=== PATIENT | male | born 1985 | race Two or more races ===

== ENCOUNTER 2022-01-30 14:03 | Emergency (ER) | payer MEDICAID ==
[~2022-01-30] VITALS: Ht 167.6 cm; Wt 82.6 kg
--- NOTE | 2022-01-30 14:14 | NUR ---
BIB FAMILY FOR RLE PAIN S/P LARGE CABINET FEL ON TOP OF HIS R LEG. TO ER BED 11, HOOKED TO MONITOR, CHANGED TO HOSP GOWN, WARM BLANKET PROVIDED. AWAITING MD JOSHI.
--- NOTE | 2022-01-30 14:32 | NUR ---
DR ARREOLA AT BEDSIDE
--- NOTE | 2022-01-30 14:44 | NUR ---
JENNIFER WRAP REMOVED,RADIOLOGY CALLED FOR X-RAY
[2022-01-30] MEDS ORDERED: HYDROCODONE/APAP 5/325MG TABLET PO ONE (15:00)
[2022-01-30] MEDS ORDERED: KETOROLAC TROMETHAMINE INJ 30 MG/ML VIAL IM ONE (15:00)
[2022-01-30] MEDS ORDERED: KETOROLAC TROMETHAMINE INJ 30 MG/ML VIAL ONE (15:01)
--- NOTE | 2022-01-30 15:04 | NUR ---
RADIOLOGY CALLED AGAIN FOR X-RAYS,SPOKE WITH REJI
[2022-01-30] MEDS ORDERED: HYDROCODONE/APAP 5/325MG TABLET ONE (15:16)
[2022-01-30] MEDS ORDERED: HYDR-4209 PO (17:08)
[2022-01-30] MEDS ORDERED: CYCL5TAB PO (17:08)
[2022-01-30] MEDS ORDERED: KETO10TA2 PO (17:08)
--- NOTE | 2022-01-30 17:19 | NUR ---
NO FX NOTED IN ALL X-RAYS, PT EDUCATED HOW TO USE CRUTCHES AND AMBULATE SLOWLY WITH CAUTION WHILE HEALING FROM STRAIN OF MUSCLE TENDON AND TISSUE AREAS.
[2022-01-30 17:20] VITALS: BP 128/82
== END 2022-01-30 17:21 | disposition home or self-care (01) ==
LOC: ER 14:07
DX: S76.311A Strain of muscle, fascia and tendon of the posterior muscle group at thigh level, right thigh, initial encounter (principal); R07.89 Other chest pain; M25.551 Pain in right hip; M25.561 Pain in right knee; Z79.899 Other long term (current) drug therapy; W20.8XXA Other cause of strike by thrown, projected or falling object, initial encounter; Y93.89 Activity, other specified; Y92.89 Other specified places as the place of occurrence of the external cause; Y99.0 Civilian activity done for income or pay
CPT/HCPCS: 99284; 96372; 73552; 73502; 73564; 71100; J1885